=== PATIENT | female | born 1935 | race Caucasian/White ===

== ENCOUNTER 2016-07-21 08:41 | Day surgery (SDC) | payer MEDICARE, OTHER ==
[~2016-07-21] VITALS: Ht 165.1 cm; Wt 74.8 kg
[2016-07-21] VITALS (9 sets, daily range): BP systolic 99–136; BP diastolic 61–84; PULSE 43–53; RESP 14–16; O2SAT 94–100
[~2016-07-21 08:41] MED LIST: ALLER-TEC PO; CALC600T12 PO; CHOL200047 PO; CHOL4PAC PO; DEXT350P5 PO; LUTE1CAP4 PO; MAGN400T4 PO; MOME17SP NS; NIAC500T21 PO; OSEL75CA15 PO; PANT40TA3 PO; PLAN450T PO; Sodium Chloride LOK Flush 10 mL Syringe IV PRN; VIT1TABL83 PO; fentaNYL-PF 50 mCg/mL 2 mL Inj IVPUSH PRN
[2016-07-21] MEDS ORDERED: Propofol 10,000 mCg/mL 20 mL Inj ONE (08:42)
[2016-07-21] MEDS ORDERED: fentaNYL-PF 50 mCg/mL 2 mL Inj IVPUSH ONE (08:42)
[2016-07-21] MEDS ORDERED: Ondansetron 2 mg/mL 2 mL Inj ONE (09:26)
[2016-07-21] MEDS ORDERED: 0.9% Sodium Chloride 1,000 ML IV ONE (09:36)
--- NOTE | 2016-07-21 10:51 | ENDO ---
[address] [address] ENDOSCOPY PROCEDURE PATIENT: MADYSON AQUINO : 1935 MR#: [id number] ADMIT: 07/21/2016 JOB ID: [id number] DATE: 07/21/2016 TYPE OF OPERATION: 1. Esophagogastroduodenoscopy with biopsy. 2. Colonoscopy. PREOPERATIVE DIAGNOSIS(ES): Gastroesophageal reflux disease, diarrhea. POSTOPERATIVE DIAGNOSIS(ES): 1. Mild nonerosive gastritis. 2. Medium-sized hiatal hernia. 3. Incomplete colonoscopy which was stopped in the sigmoid colon due the patient requests due to pain. ANESTHESIA: 1. Fentanyl 100 mcg. 2. Versed 5 mg IV administered. COMPLICATIONS: None. BLOOD LOSS: Minimal. DESCRIPTION OF PROCEDURE: After risks and benefits were explained to the patient, informed consent was obtained. After anesthesia administered, upper endoscope was then inserted into the mouth and intubated into the esophagus, stomach, second portion of duodenum. Mucosa carefully examined. After procedure was done, the scope was withdrawn and the procedure terminated. A colonoscope was then inserted from the rectum to the sigmoid colon. Mucosa carefully examined. Prep of the patient was excellent. After procedure was done, the scope withdrawn and procedure terminated. FINDINGS: Upon inspection of the esophagus, the esophagus was normal with no masses, ulcers, or lesions. Z-line located at 35 cm from incisors. Upon entering the stomach, there was mild nonerosive gastritis. No masses, ulcers or lesions were seen. Retroflexion revealed a medium-sized hiatal hernia. Duodenal bulb, first and second portion normal. Biopsies taken of the duodenum, antrum, body and distal esophagus. Upon inspection of the anus, no masses, hemorrhoids, ulcers or fissures that were seen. Throughout the entire examination, the patient had mild sigmoid diverticulosis. There was also an adhesion, tortuous sigmoid due to prior surgery. After several attempts to get past this region, the patient requested to stop due to pain. IMPRESSION: 1. Mild nonerosive gastritis. 2. Medium-sized hiatal hernia. 3. Mild sigmoid diverticulosis. 4. Tortuous sigmoid due to prior surgery. The patient requested to stop the procedure due to pain. RECOMMENDATIONS: 1. Await pathology results. 2. Repeat colonoscopy with anesthesia for diarrhea given the fact that the patient could not tolerate with conscious sedation.
--- NOTE | 2016-07-21 23:16 | ENDO ---
[address] [address] ENDOSCOPY PROCEDURE PATIENT: MADYSON AQUION : 1935 MR#: [id number] ADMIT: 07/21/2016 JOB ID: [id number] DATE OF SERVICE: 07/21/2016 TITLE OF OPERATION: Colonoscopy with biopsy. PREOPERATIVE DIAGNOSIS(ES): Diarrhea. POSTOPERATIVE DIAGNOSIS(ES): 1. Mild sigmoid diverticulosis. 2. There were two polyps in the cecum measuring 3 mm in size, status post biopsy, and post hemoclip placed due to mild bleeding. ANESTHESIA: Monitored anesthesia care. COMPLICATIONS: None. BLOOD LOSS: Minimal. DESCRIPTION OF PROCEDURE: After risks and benefits were explained to the patient, informed consent was obtained. After anesthesia administered, the colonoscope was inserted from the rectum to the terminal ileum. Mucosa carefully examined. Prep of the patient was excellent. After procedure was done, the scope withdrawn, and procedure terminated. FINDINGS: Upon inspection of the anus, no masses, hemorrhoids, ulcers, or fissures that were seen. Throughout the entire examination, there were two polyps measuring 3 mm in the cecum removed by cold biopsy forceps. Afterwards, there was mild oozing, in which a hemoclip was placed with good hemostasis. There was mild sigmoid diverticulosis. Biopsies taken of the terminal ileum and random colon. Retroflexion was normal. IMPRESSIONS: 1. Two polyps seen in the cecum measuring 3 mm in size, status post biopsy and hemoclip due to mild oozing post polypectomy. 2. Mild sigmoid diverticulosis. RECOMMENDATIONS: High-fiber diet. If tubular adenoma, then repeat colonoscopy in five years. Follow up in GI clinic as needed.
--- NOTE | 2016-07-24 14:33 | PATH ---
SURGICAL PATHOLOGY Attending Physician:Pb Doty MD CASE STATUS: Signed Out PATIENT NAME: MADYSON AQUINO PID: [id number] : 1935 DATE COLLECTED:07/21/2016 21:29 SPECIMEN: 1: Colon, Biopsy 2: Colon, Biopsy 3: Ileum, Biopsy 4: Duodenum, Biopsy 5: Stomach, Antrum, Biopsy 6: Gastric, Biopsy 7: Esophagus, Biopsy CLINICAL HISTORY: 1). CECAL POLYPS X2 2). RANDOM COLON 3). TERMINAL ILEUM BIOPSY 4). DUODENUM BIOPSY 5). ANTRUM BIOPSY 6). GASTRIC BODY BIOPSY 7). DISTAL ESOPHAGUS BIOPSY FINAL DIAGNOSIS: 1.CECAL POLYPS: TUBULAR ADENOMA INVOLVING ALL BIOPSY FRAGMENTS. 2.RANDOM COLON BIOPSIES: FRAGMENTS OF NORMAL-APPEARING COLON MUCOSA. Negative for significant architectural distortion. Negative for significant inflammation, dysplasia and malignancy. 3.TERMINAL ILEUM BIOPSY: FRAGMENTS OF NORMAL-APPEARING TERMINAL ILEUM MUCOSA. Negative for granulomas. Negative for significant inflammation, dysplasia and malignancy. 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 Negative for evidence of celiac disease. Negative for dysplasia and malignancy. 5.GASTRIC ANTRUM BIOPSY: DIFFUSE MILD CHRONIC GASTRITIS INVOLVING ANTRAL MUCOSA. Negative for evidence of Helicobacter on H&E stain. Negative for intestinal metaplasia. Negative for dysplasia and malignancy. 6.GASTRIC BODY BIOPSY: FOCAL MINIMAL SUPERFICIAL CHRONIC GASTRITIS INVOLVING FUNDIC MUCOSA. Negative for evidence of Helicobacter on H&E stain. Negative for intestinal metaplasia. Negative for dysplasia and malignancy. 7.DISTAL ESOPHAGUS BIOPSY: FRAGMENTS OF SQUAMOUS MUCOSA AND GASTRIC CARDIA-TYPE MUCOSA NEGATIVE FOR SPECIALIZED METAPLASIA OF HART' S-TYPE ESOPHAGUS. Negative for dysplasia and malignancy. Negative for squamous intraepithelial eosinophils. ICD10 D12.0 GROSS DESCRIPTION: The specimen is received in seven formalin filled containers labeled with the patient's name. 1). The specimen is sublabeled "cecal" and consists of 3 portions of tissue which aggregate to 0.3 x 0.3 x 0.2 CM. The specimen is entirely submitted in cassette 1A. 2). The specimen is sublabeled "random" and consists of 5 portions of tissue which aggregate to 0.4 x 0.4 x 0.2 CM. The specimen is entirely submitted in cassette 2A. 3). The specimen is sublabeled " TI " and consists of 2 portions of tissue which aggregate to 0.3 x 0.2 x 0.2 CM. The specimen is entirely submitted in cassette 3A. 4). The specimen is sublabeled "duodenum" and consists of 2 portions of tissue which aggregate to 0.3 x 0.3 x 0.2 CM. The specimen is entirely submitted in cassette 4A. 5). The specimen is sublabeled "antrum" and consists of a 0.3 x 0.2 x 0.2 CM portion of tissue which is entirely submitted in cassette 5A. 6). The specimen is sublabeled "gastric body" and consists of 2 portions of tissue which aggregate to 0.5 x 0.3 x 0.2 CM. The specimen is entirely submitted in cassette 6A. 7). The specimen is sublabeled "distal esophagus" and consists of 2 portions of tissue which aggregate to 0.2 x 0.2 x 0.2 CM. The specimen is entirely submitted in cassettes 7A. 07/21/2016 DAC MICRO DESCRIPTION: See diagnosis. ICD-9 CODES: CPT CODES: 1: 57602 2: 29877 3: 14413 4: 86412 5: 68239 6: 48493 7: 44851 Electronically Signed Out Jorge Paulino MD [facility] [address], [place] [address] Technical component performed at [facility], [facility] [address], [address]
== END 2016-07-21 23:59 | disposition home or self-care (01) ==
LOC: END 08:41
PROVIDERS: ATTEND Internal Medicine Gastroenterology
DX: D12.0 Benign neoplasm of cecum (principal); K57.30 Diverticulosis of large intestine without perforation or abscess without bleeding; K29.50 Unspecified chronic gastritis without bleeding; K29.80 Duodenitis without bleeding; K44.9 Diaphragmatic hernia without obstruction or gangrene; K21.9 Gastro-esophageal reflux disease without esophagitis; K58.0 Irritable bowel syndrome with diarrhea; M19.90 Unspecified osteoarthritis, unspecified site; Z79.01 Long term (current) use of anticoagulants; Z86.718 Personal history of other venous thrombosis and embolism; Z86.010 Personal history of colon polyps
CPT/HCPCS: 43239; 45380; 88305; G0500; J2250; J2405; J3010; J7030